=== PATIENT | female | born 1955 | race Caucasian/White ===

== ENCOUNTER 2024-10-02 07:11 | Outpatient (CLI) | payer MEDICARE, BC, SELFPAY ==
--- OUTSIDE RECORDS SUMMARY | 2024-10-02 08:22 | XMS_ITS | Clinical Summary ---
Author Organization [facility] Address [address] [place] [address] Care Team Providers Care Compensation Intern Name Role Phone Velia Blank MD Primary Care Prov ider Allergies Active Allergy Reactions Criticality Noted Date Comments Lisinopril Cough 12/27/2011 Nifedipine Edema 01/12/2016 Azithromycin Rash 06/12/2007 Medications blood-glucose meterIndications:T ype 2 diabetes mellitus without complication, without long-term current use of insulin (HC) Dispense meter, test strips, lancets covered by pt ins. E11.9 NIDDM type II - Test 3 times/day, Reason: New diabetes 1 Device 0 12/06/19 16 Active blood sugar diagnostic (ONETOUCH ULTRA BLUE TEST STRIP) stripIndications:T ype 2 diabetes mellitus without complication, without long-term current use of insulin (HC) As directed 2 times daily. Dispense item covered by pt ins. E11.9 NIDDM type II - Test 2 times/day. 200 Strip 3 05/17/19 21 Active nystatin (MYCOSTATIN) creamIndications:Y east cells and fungal elements present on diagnostic testing Apply topically to affected area(s) 2 times daily. Right axilla, right and left inframammary, abdomen 60 g 2 09/16/19 22 Active metFORMIN 500 mg tabletIndications: Type 2 diabetes mellitus without complication, without long-term current use of insulin (HC) TAKE 2 TABLETS BY MOUTH TWICE DAILY WITH MEALS 360 Tablet 08/18/19 25 Active polyethylene glycol-electrolyte 236-22.74-6.74 -5.86 gram suspensionIndicati ons:Encounter for screening colonoscopy Drink 2 liters (half the bottle) the day before colonoscopy and 2 liters (remaining prep) 6 hours prior to colonoscopy appointment. 4000 mL 09/04/19 25 Active hydroCHLOROthiazid e 25 mg tabletIndications: Hypertension, unspecified type Take 1 Tablet (25 mg) by mouth once daily. 90 Tablet 09/30/19 Active telmisartan 40 mg tabletIndications: Hypertension, unspecified type Take 0.5 Tablets (20 mg) by mouth once daily. 45 Tablet 09/30/19 25 Active atorvastatin 10 mg tabletIndications: Type 2 diabetes mellitus without complication, without long-term current use of insulin (HC),Hyperlipidemi a, unspecified hyperlipidemia type Take 1 Tablet (10 mg) by mouth once daily. 90 Tablet 09/30/19 25 Active blood sugar diagnostic stripIndications:T ype 2 diabetes mellitus without complication, without long-term current use of insulin (HC) Test As directed: 2 times daily. Dispense item covered by pt ins. E11.9 NIDDM type II - Test 2 times/day 200 Each 3 09/30/19 25 Active lancets (OneTouch Delica Plus Lancet) 33 gauge miscIndications:Ty pe 2 diabetes mellitus without complication, without long-term current use of insulin (HC) USE TO TEST BLOOD GLUCOSE LEVELS 2-3 TIMES DAILY DEPENDING ON BLOOD SUGAR. 300 Each 09/30/19 25 Active semaglutide (Ozempic) 2 mg/3 mL subcutaneous penIndications:Typ e 2 diabetes mellitus without complication, without long-term current use of insulin (HC) Inject 0.25 mg subcutaneous once weekly. After 4 weeks increase to 0.5 mg weekly 6 mL 09/30/19 25 Active blood sugar diagnostic stripIndications:T ype 2 diabetes mellitus without complication, without long-term current use of insulin (HC) Test As directed: 2 times daily. Dispense item covered by pt ins. E11.9 NIDDM type II - Test 2 times/day 200 Each 3 06/02/19 22 025 Discontin ued(Reord er (E-cancel not sent)) lancets (OneTouch Delica Plus Lancet) 33 gauge miscIndications:Ty pe 2 diabetes mellitus without complication, without long-term current use of insulin (HC) USE TO TEST BLOOD GLUCOSE LEVELS 2-3 TIMES DAILY DEPENDING ON BLOOD SUGAR. 300 Each 3 06/02/19 22 025 Discontin ued(Reord er (E-cancel not sent)) atorvastatin 10 mg tabletIndications: Type 2 diabetes mellitus without complication, without long-term current use of insulin (HC),Hyperlipidemi a, unspecified hyperlipidemia type TAKE ONE TABLET BY MOUTH ONE TIME DAILY 90 Tablet 08/25/19 25 025 Discontin ued(Reord er (E-cancel not sent)) hydroCHLOROthiazid e 25 mg tabletIndications: Hypertension, unspecified type TAKE ONE TABLET BY MOUTH ONE TIME DAILY 90 Tablet 08/25/19 25 025 Discontin ued(Reord er (E-cancel not sent)) telmisartan 40 mg tabletIndications: Hypertension, unspecified type Take 0.5 Tablets (20 mg) by mouth once daily. 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 Overview (09/09/2020): 05/17/20 Right shoulder, Junctional nevus with severe atypia: Excised 06/06/20 General surgery 05/17/20 back, Compound nevus with moderate atypia : Excised 06/06/20 General Surgery Atypical pigmented skin lesion 05/26/2020 Type 2 diabetes mellitus without complication Overview (02/09/2016): Diet controlled Started on Lipitor AHA risk was 3.8 % (without diabetes) Family history of malignant neoplasm of gastrointestinal tract 11/20/2013 Overview (04/21/2019): Colonoscopy 11/2013 normal repeat in 5 years Colonoscopy 04/2019 inflammatory polyp, repeat in 5 years Hypertension 10/23/2011 Knee pain 11/17/2009 Ingrowing nail 06/12/2007 Resolved Problems Problem Noted Date Diagnosed Date Resolved Date Glucose intolerance (pre-diabetes) 08/28/2013 02/09/2016 Encounters Date Type Department Care Team Description 10/02/2024 Travel 09/29/2024 7:00 AM CDT Office Visit [facility] [address] [place] [address] Velia Blank MD Medicare ANNUAL (subsequent) Visit (69 yo female); Preoperative Exam (DOS [facility]02[facility] 09/29/2024 Travel 09/10/2024 Orders Only [facility] Scanner 1 scan: (1-Ord) [facility], 09/10/2024 09/04/2024 8:40 AM CDT Ancillary Procedure [facility] [address] [place] [address] 09/04/2024 Travel 09/03/2024 Telephone [facility] [address] [place] [address] Nic Sexton MD Pre Procedure 08/22/2024 Refill [facility] [address] [place] [address] Velia Blank MD Refill Request (Atorvastatin, Hydrochlorothiazide, Telmisartan) 08/16/2024 Refill [facility] [address] [place] [address] Velia Blank MD Refill Request (Metformin) from Last 3 Months Immunizations Immunization Administration Dates Next Due Influenza Virus, Unspecified 02/06/2016 Influenza, High-dose Inactivated 02/22/2022 Influenza, High-dose Quadriv alent Inactivated 12/24/2022,02/22/2022,01/20/2021 Influenza, IIV3 (Age >=3 years) 01/30/20 14,01/19/2013,02/01/2012,2010,01/25/2010 Influenza, IIV4 05/01/2018 Influenza, IIV4 (=>6mos) MDV 01/27/2019,02/05/20 17 Influenza, Whole Virus 02/01/2017 Pneumococcal Conj 20-valent (Prevnar 20) 08/20/2023,06/28/2022 Pneumococcal Poly,23-Valent (Pneumovax) 05/25/2021 Td (Age >=7 Years) 06/26/2022 Tdap 06/26/2022,10/23/2011 Zoster (Shingrix-RZV, recombinant) 05/17/2020, Family History Medical History Relation Name Comments Cancer-colon Brother Diabetes Father Hyperlipidemia Father Hypertension Father Cancer Mother vulvar Deep vein thrombosis Mother Hypertension Mother Colon polyps Other genetic Good Health Sister Cancer-breast No Family History Relation Name Status Comments Brother Father Mother Other Sister Social History Tobacco Use Types Packs/Day Years Used Date Smoking Tobacco: Never Smokeless Tobacco: Never Tobacco Cessation:Counseling Given: Yes Alcohol Use Standard Drinks/Week Comments No 0 (1 standard drink = 0.6 oz pur e alcohol) PHQ-2 Answer Date Recorded PHQ-2 TOTAL SCORE 0 09/29/2024 Social Connections Answer Date Recorded Do you often feel lonely or isolated from those around you? 0 09/29/2024 Financial Resource Strain Answer Date R ecorded Difficulty of Paying Living Expenses 3 09/29/2024 Difficulty of Paying Living Expenses Not on file 09/29/2024 Food Insecurity Answer Date Recorded Do you worry your food will run out before you are able to buy more? 1 09/29/2024 Transportation Needs Answer Date Record ed Does lack of transportation keep you from medica l appointments? 1 09/29/2024 Does lack of transportation keep you from work, meetings or getting things that you need? 1 09/29/2024 Housing Stability Answer Date Recorded What is your housing situation today? 1 09/29/2024 Utilities Answer Date Recorded Do you have trouble paying f or utilities (for example, heat, electricity, water, phone)? 1 09/29/2024 Comments No Sex and Gender Information Value Date Recorded Sex Assigned at Not on file Legal Sex Female 6:23 AM [employer] TE[employer] Gender Identity Not on file Sexual Orientation Not on file Obstetrics History Last Filed Vital Signs Vital Sign Reading Time Taken Comments Blood Pressure 129/70 09/29/2024 7:07 AM CDT Pulse 63 09/29/2024 7:07 AM CDT Temperature 36.5 C (97.7 F) 09/29/2024 7:07 AM CDT Respiratory Rate 16 06/20/2020 7:34 AM CDT Oxygen Saturation 99% 09/29/2024 7:07 AM CDT Inhaled Oxygen Concentration - - Weight 91.3 kg (201 lb 3.2 oz) 09/29/2024 7:07 A M CDT Height 163.8 cm (5' 4.5) 09/29/2024 7:07 AM CDT Body Mass Index 34 09/29/2024 7:07 AM CDT Plan of Treatment Upcoming Encounters Date Type Department Care Team (Late st Contact Info) Description 11/24/2024 10:30 AM CDT Office Visit [facility] [address] [place], [place] [id number] Jen Headley MD [address] [place], [place] [address] 12/30/2024 7:00 AM CDT Office Visit [facility] [address] [place] [address] Velia Blank MD [address] [place] [address] Health Maintenance Due Date Last Done Comments RSV vaccine for adults or (1 - Risk 60-74 years 1-dose series) 2015 COVID-19 vaccine series ( season) 2023 07/04/2023, 01/08/2023, 09/21/2022, Additional history exists Influenza Vaccine (Season Ended) 2024 02/22/2022, 01/27/2019, 05/01/2018, Additional history exists Mammogram for age 45-75 09/04/2025 09/05/19, 08/20/2023, 06/26/2022, Additional history exists BMI (ht and wt on same day) for age 18+ 09/29/2025 09/29/2024, 08/20/2023, 06/26/2022, Additional history exists Depression screening for age 12+ 09/29/2025 09/29/2024, 08/20/2023, 06/26/2022, Additional history exists Medicare Wellness for age 65+ 09/30/2025 09/29/2024, 08/20/2023, 06/26/2022, Additional history exists Lipids for age 45-75 09/29/2029 09/29/2024, 08/20/2023, 06/26/2022, Additional history exists Colonoscopy through age 75 10/02/202910/02, 04/16/2019, 04/16/2019, Additional history exists Tetanus booster 06/26/2032 06/26/2022, 06/07, 10/23/2011 Hepatitis C screening for age 18-79 Completed 12/06/2015 Zoster (shingles) series for age 50+ Completed 05/17/2020, 05/15/2019 DEXA/DXA scan for age 65+ Completed 09/25/2021 Tdap Completed 06/26/2022, 10/23/2011 Pneumococcal series for age 50+ Completed 08/20/2023, 06/28/2022, 05/25/2021 Hepatitis B series for 19+ Aged Out N o longer eligible based on patient's age to complete this topic Procedures Procedure Name Priority Date/Time Associated Diagnosis Comments COLONOSCOPY SCREENING Routine 10/02/2024 6:50 AM CDT Encounter for screening colonoscopy URINE ALBUMIN TO CREATININE RATIO, RANDOM Routine 09/29/2024 8:23 AM CDT Type 2 diabetes mellitus without complication, without long-term current use of insulin (HC) BASIC METABOLIC PANEL Routine 09/29/2024 8:13 AM CDT Type 2 diabetes mellitus without complication, without long-term current use of insulin (HC) LIPID PANEL Routine 09/29/2024 8:13 AM CDT Type 2 diabetes mellitus without complication, without long-term current use of insulin (HC) HEMOGLOBIN A1C MONITORING (POCT) Routine 09/29/2024 8:11 AM CDT Type 2 diabetes mellitus without complication, without long-term current use of insulin (HC) SCAN-EYE EXAM 09/10/2024 12:00 AM CDT XR MAMMO VANE BILAT SCREEN Routine 09/04/2024 8:49 AM CDT Visit for screening mammogram XR DXA BONE DENSITY 2 SITES AXIAL Routine 09/25/2021 8:48 AM CDT Menopause ANTI HCV Routine 12/06/2015 8:41 AM CDT Need for hepatitis C screening test from Last 3 Months or Most Recently Relevant to Health Maintenance Results * URINE ALBUMIN TO CREATININE RATIO, RANDOM (09/29/2024 8:23 AM CDT) ALB RAND URINE <12.0 mg/L 09/29/2024 3:17 PM CDT [facility] CREATININE,URINE 1.12 g/L 09/30/19 3:17 PM CDT [facility] ALBUMIN TO CREATININE RATIO,RAND UR 09/29/2024 3:17 PM CDT [facility] Comment:Urine Albumin below measurement range, unable to calculate. Urine URINE SPECIMEN / Unknown Non-Blood / Unknown 09/29/2024 8:23 AM CDT 09/29/2024 8:23 AM CDT Narrative [facility] - 09/29/2024 3:17 PM CDT If Albumin to Creatinine Ratio is elevated, consider the following: Elevations seen with incipient nephropathy associated with diabetes mellitus or hypertension. Stress, exercise,hematuria, and urinary tract infection may also produce elevated results. If clinically indicated, confirm with 24 Hour Albumin to Creatinine Ratio. us Velia Blank MD URINE Fi nal Result [facility] [address] [place] [address], * (ABNORMAL) LIPID PANEL (09/29/2024 8:13 AM CDT) CHOLESTEROL, TOTAL 143 <200 mg/dL [facility] HDL CHOLESTEROL 56 > OR = 50 mg/dL [facility] TRIGLYCERIDES 174(H) <150 mg/dL [facility] LDL-CHOLESTEROL 62 mg/dL (calc) [facility] Comment: Reference range: <100 Desirable range <100 mg/dL for primary prevention; <70 mg/dL for patients with CHD or diabetic patients with > or = 2 CHD risk factors. LDL-C is now calculated using the Leo calculation, which is a validated novel method providing better accuracy than the Friedewald equation in the estimation of LDL-C. Nic SS et al. LEN. 2013;310(19): 0059-4946 (http://education.Sol Mar REI/faq/KBY875) CHOL/HDLC RATIO 2.6 <5.0 (calc) [facility] NON HDL CHOLESTEROL 87 <130 mg/dL (calc) [facility] Comment: For patients with diabetes plus 1 major ASCVD risk factor, treating to a non-HDL-C goal of <100 mg/dL (LDL-C of <70 mg/dL) is considered a therapeutic option. Blood BLOOD SPECIMEN / Unknown 09/29/2024 8:13 AM CDT 09/29/2024 8:14 AM CDT Velia Blank MD CHEMISTRY Fi nal Result [facility] [address] [place] [address], [place] [facility] [facility] [address] [place] [address] * (ABNORMAL) BASIC METABOLIC PANEL (09/29/2024 8:13 AM CDT) Pathologist [facility] GLUCOSE 189(H) 65 - 99 mg/dL [facility] Comment: Fasting reference interval For someone without known diabetes, a glucose value >125 mg/dL indicates that they may have diabetes and this should be confirmed with a follow-up test. UREA NITROGEN (BUN) 14 7 - 25 mg/dL [facility] CREATININE 0.70 0.50 - 1.05 mg/dL [facility] EGFR 94 > OR = 60 mL/min/1. 73m2 [facility] BUN/CREATININE RATIO SEE NOTE: 6 - 22 (calc) [facility] Comment: Not Reported: BUN and Creatinine are within reference range. SODIUM 139 135 - 146 mmol/L [facility] POTASSIUM 3.9 3.5 - 5.3 mmol/L [facility] CHLORIDE 98 98 - 110 mmol/L [facility] CARBON DIOXIDE 30 20 - 32 mmol/L [facility] ELECTROLYTE BALANCE 11 7 - 17 mmol/L (calc) [facility] CALCIUM 9.8 8.6 - 10.4 mg/dL [facility] Blood BLOOD SPECIMEN / Unknown 09/29/2024 8:13 AM CDT 09/29/2024 8:14 AM CDT Velia Blank MD CHEMISTRY Fi nal Result [facility] [place] [id number] [place] [address], [place] [employer] [address] * (ABNORMAL) POCT Hemoglobin A1C Monitoring (09/29/2024 8:11 AM CDT) POC HEMOGLOBIN A1C 10.4(H) <6.0 % OF TOTAL HGB [facility] Comment: Any point of care results exhibiting inconsistency with the patient's clinical status should be repeated using a different testing method. Blood BLOOD SPECIMEN / Unknown 09/29/2024 8:11 AM CDT 09/29/2024 8:12 AM CDT us Velia Blank MD CHEMISTRY Fi nal Result [facility] [address] [place] [address], [facility] [address] [place] [address] * SCAN-EYE EXAM (09/10/2024 12:00 AM CDT) Scanner OTHER Final Result * XR MAMMO VANE BILAT SCREEN (09/04/2024 8:49 AM CDT) Anatomical Region Laterality Modality BREASTS, Breast Left, Breast Right Bilateral Mammography Impressions 09/04/2024 3:53 PM CDT There is no radiographic evidence for malignancy. Recommend annual mammograms. MAMMOGRAM ASSESSMENT: ACR 1 Negative PATIENTS: You will also receive a letter with your examination results in an easy to read format. If you have questions about your results, please contact your referring provider. Narrative 09/04/2024 3:53 PM CDT For Patients: As a result of the Century Cures Act, medical imaging exams and procedure reports are released immediately into your electronic medical record. You may view this report before your referring provider. If you have questions, please contact your health care provider. XR MAMMO VANE BILAT SCREEN [[id number]] CLINICAL HISTORY: This is an asymptomatic 69 y.o. patient. INDICATION FOR EXAM: Mammogram Screening. TECHNIQUE: CC and MLO views were obtained. This study was evaluated with the assistance of Computer-Aided Detection. Breast Tomosynthesis was used in interpretation. COMPARISON FILM: Yes 08/20/23 [facility] 06/26/22 [facility] FINDINGS: The breasts are heterogeneously dense, which may obscure small masses. There are no dominant masses, suspicious micro calcifications or areas of architectural distortion. Velia Blank MD MAMMO Fi nal Result * XR DXA BONE DENSITY 2 SITES AXIAL [59340.1] (09/25/2021 8:48 AM CDT) Anatomical Region Laterality Modality Spine, HIPS, HIPL, HIPR Other Impressions 09/26/2021 3:40 PM CDT Normal bone density. RECOMMENDATIONS: The National Osteoporosis Foundation recommends pharmacologic treatment for patients with T-scores of -2.5 or less, patients with prior history of fragility fractures, or patients with 10-year probability of greater than 3% at hips or greater than 20% of suffering major osteoporotic fractures. Recommend continued optimization of calcium and vitamin D intake through dietary means and/or supplementation and regular exercise. Repeat scan recommended in 3-5 years. Merari Huerta PA-C [facility] 09/26/2021 Narrative 09/26/2021 3:40 PM CDT For Patients: Results are automatically released to your [facility] account once available, in compliance with federal regulations. This means that you may see your results before your provider has had a chance to review them. Please allow 2-3 business days for your provider to comment on the results. XR DXA Bone Mineral Density (BMD) EXAM LOCATION: [address] [address] PATIENT NAME: Janny Watson DATE OF : 1955 EXAM DATE: 09/25/2021 REQUESTING PROVIDER: Velia Blank MD GENDER AT : female HEIGHT: 5' 5.08 (05/25/2021) WEIGHT: 222 lb 3.2 oz (05/25/2021) MENOPAUSAL STATUS: Postmenopausal RACE/ETHNICITY: White RISK FACTORS: White Race CURRENT MEDICATION FOR BONE LOSS: NONE INDICATION: Menopause COMPARISON DATE(S): None DXA scans are compared to prior studies for a patient only when the two (or more) studies were performed on the same scanner. It is not possible to compare data generated on one scanner to data from another because there are not standards in DXA equipment. This applies even if the two scanners are made by the same manager ecommerce. PROCEDURE: Dual-energy x-ray absorptiometry performed with routine technique. Reporting is completed in the form of a T-score. The T-score represents the standard deviation from peak bone mass based on young healthy adult. A Z-score is used for diagnosis in premenopausal women, and for men under the age of 50. FINDINGS: RESULT LUMBAR SPINE L1 - L4(l3) BMD: 1.507 g/cm2 T-Score: + 2.6 Z-Score: + 3.1 Change from prior: None RESULTS FEMUR Left femoral neck BMD: 1.229 g/cm2 T-Score: + 1.4 Z-Score: + 2.1 Change from prior: None Right femoral neck BMD: 1.102 g/cm2 T-Score: + 0.5 Z-Score: + 1.2 Change from prior: None Left hip BMD: 1.304 g/cm2 T-Score: + 2.4 Z-Score: + 2.8 Change from prior: None Right hip BMD: 1.106 g/cm2 T-Score: + 0.8 Z-Score: + 1.2 Change from prior: None WHO criteria: Normal: T-score at or above -1 SD Osteopenia: T-score between -1.1 and -2.4 SD Osteoporosis: T-score at or below -2.5 SD us Velia Blank MD DEXA Fi nal Result * COLONOSCOPY (04/16/2019 10:16 AM [employer] TEACHER) 04/16/2019 10:1 6 AM [employer]ATION [employer]ER[employer] TEACHER Narrative Transcriptions Nic Sexton MD - 04/29/2019 1:23 PM CST Patient Name: Janny Watson Procedure Date: 04/16/2019 Gender: Female Date of : 1955 Admit Type: Outpatient Procedure: Colonoscopy Proceduralist: Nic Sexton MD , Fabienne Shaffer RN(Nurse) Indications/Pre-Op Diagnosis: Screening in patient at increased risk: Colorectal cancer in brother before age 60, Last colonoscopy: November 2010 Medications: Fentanyl 100 micrograms IV, Midazolam 3 mgIV, The level of sedation administered wasmoderate Procedure Description: The patient had risks, benefits and alternatives explained to andgave informed consent. The patient had a stable cardiopulmonary status and judged an adequate candidate for conscious sedation. The [id number] was passed through the anus and advanced tothe cecum, identified by appendiceal orifice and ileocecal valve. The colonoscopy was performed without difficulty. The patient toleratedthe procedure well. The quality of the bowel preparation was good. The ileocecal valve, appendiceal orifice, and rectum were photographed. Complications: No immediate complications. Estimated Blood Loss & Specimen: Estimated blood loss: none. Specimen collected - Yes and sent to Laboratory Findings: The perianal and digital rectal examinations were normal. Two sessile polyps were found in the sigmoid colon. The polyps were 2to 3 mm in size. These polyps were removed with a cold snare. Resectionand retrieval were complete. The exam was otherwise without abnormality. Impressions/Post-Op Diagnosis: - Two 2 to 3 mm polyps in the sigmoid colon, removed with a coldsnare. Resected and retrieved. - The examination was otherwise normal. Recommendation: - Patient has a contact number available for emergencies. The signsand symptoms of potential delayed complications were discussed with the patient. Return to normal activities tomorrow. Written discharge instructions were provided to the patient. - Resume previous diet. - Continue present medications. - Await pathology results. - Repeat colonoscopy in 5 years. Moderate Sedation: Moderate (conscious) sedation was administered by the endoscopy nurse and supervised by the endoscopist. The following parameters were monitored: oxygen saturation, heart rate, respiratory rate, blood pressure, adequacy of pulmonary ventilation and reponse to care. [facility] flow[facility]ets and nursing notes for moderate sedation details. Total physician intraservice time was 17 minutes. Nic Sexton MD 04/16/2019 11:36:55 AM This report has been signed electronically. Note Initiated On: 04/16/2019 10:16 AM Procedure Code(s): --- Professional --- 79821, Colonoscopy, flexible; with removalof tumor(s), polyp(s), or other lesion(s) bysnare technique Diagnosis Code(s): --- Professional --- Z80.0, Family history of malignant neoplasmof digestive organs D12.5, Benign neoplasm of sigmoid colon CPT copyright 2018 [employer]. All rights reserved. The codes documented in this report are preliminary and upon neuro intensivist physician reviewmay be revised to meet current compliance requirements. Scope In: 11:15:27 AM Scope Withdrawal Time 0 hours 10 minutes 12 seconds Scope Out: 11:30:00 AM us Nic Sexton MD PROCEDURE ORD Edited Re sult - Final * ANTI HCV [03591.2] (12/06/2015 8:41 AM CDT) HEPATITIS C ANTIBODY Non-Reacti ve Non-Reacti ve 12/06/2015 3:03 PM CDT [facility] Blood BLOOD SPECIMEN / Unknown Venipuncture / Unknown 12/06/2015 8:41 AM CDT 12/06/2015 8:41 AM CDT Narrative [facility] - 12/06/2015 3:03 PM CDT Antibodies to HCV not detected; does not exclude the possibility of exposure to HCV. Velia Blank MD SEND OUTS Fi nal Result [facility] [address] [place] [address], [place] from Last 3 Months or Most Recently Relevant to Health Maintenance Insurance [employer] [place] ONLY Care Teams Compensation Intern Relationship Specialty Start Date End Date Velia Blank MD [address] [place] [address] PCP - General 09/13/05
--- NOTE | 2024-10-02 08:25 | P.ANES_ITS ---
Anesthesia Charges Start Date/Time Anesthesia Start Date: 10/02/24 Anesthesia Start Time: 08:05 Stop Date/Time Anesthesia Stop Date: 10/02/24 Anesthesia Stop Time: 08:23 Coding CPT Codes CPT Codes: ANES LWR INTST SCR COLSC - 84154 ([id number]) P2 - PATIENT W/MILD SYST DISEASE, QK - DATA SOLUTIONS ARCHITECT 2-4 CNCRNT ANES PROC, QX - MALT SPECIFICATIONS CONTROL ASSISTANT SVC W/ MD MED DIRECTION
--- NOTE | 2024-10-02 08:25 | W.ANESCHARGE ---
Anesthesia Charges Start Date/Time Anesthesia Start Date: 10/02/24 Anesthesia Start Time: 08:05 Stop Date/Time Anesthesia Stop Date: 10/02/24 Anesthesia Stop Time: 08:23 Coding CPT Codes CPT Codes: ANES LWR INTST SCR COLSC - 20910 ([id number]) P2 - PATIENT W/MILD SYST DISEASE, QK - CITIZENSHIP INSTRUCTOR 2-4 CNCRNT ANES PROC, QX - MANAGER HYDRAULIC SVC W/ MD MED DIRECTION
--- NOTE | 2024-10-02 09:14 | P.ANES_ITS ---
Anesthesia Charges Start Date/Time Anesthesia Start Date: 10/02/24 Anesthesia Start Time: 08:05 Stop Date/Time Anesthesia Stop Date: 10/02/24 Anesthesia Stop Time: 08:23 Coding CPT Codes CPT Codes: ANES LWR INTST SCR COLSC - 33103 ([id number]) P2 - PATIENT W/MILD SYST DISEASE, QK - PLACEMENT DIRECTOR 2-4 CNCRNT ANES PROC, QX - ROLL PLUGGER MACHINE OPERATOR SVC W/ MD MED DIRECTION
--- NOTE | 2024-10-02 09:14 | W.ANESCHARGE ---
Anesthesia Charges Start Date/Time Anesthesia Start Date: 10/02/24 Anesthesia Start Time: 08:05 Stop Date/Time Anesthesia Stop Date: 10/02/24 Anesthesia Stop Time: 08:23 Coding CPT Codes CPT Codes: ANES LWR INTST SCR COLSC - 96098 ([id number]) P2 - PATIENT W/MILD SYST DISEASE, QK - BAR SUPERVISOR 2-4 CNCRNT ANES PROC, QX - CERTIFIED GENETIC COUNSELOR SVC W/ MD MED DIRECTION
--- OUTSIDE RECORDS SUMMARY | 2024-10-03 00:20 | XMS_ITS | Clinical Summary ---
Author Organization [facility] Address [address] [place] [id number] Care Team Providers Care Social Security Benefits Interviewer Name Role Phone Velia Blank MD Primary [...] Date Type Department Care Team Description 10/02/2024 7:15 AM CDT Office Visit [facility] [address] [place] [address] Nic Sexton MD Arrived 10/02/2024 Orders Only [facility] Scanner 1 scan: (1-Ord) INCOMING RECORDS-COLONOSCOPY, [facility], 10/02/2024 10/02/2024 Orders Only [facility] Scanner 1 scan: (1-Ord) INCOMING RECORDS-COLONOSCOPY, [facility], 10/02/2024 10/02/2024 Travel 09/29/2024 7:00 AM CDT Office Visit [facility] [address] [place] [address] Velia Blank MD Medicare ANNUAL (subsequent) Visit (69 yo female); Preoperative Exam (DOS 10/02/24 /Preop Colonoscopy/Dr. Sexton- [facility] ) 09/29/2024 Travel 09/10/2024 Orders Only [facility] Scanner 1 scan: (1-Ord) [facility], 09/10/2024 09/04/2024 8:40 AM CDT Ancillary Procedure [facility] [address] [place] [address] 09/04/2024 Travel 09/03/2024 Telephone [facility] [address] [place] [address] Nic Sexton MD Pre Procedure 08/22/2024 Refill [facility] [address] [place] [address] Velia Blank MD Refill Request (Atorvastatin, Hydrochlorothiazide, Telmisartan) 08/16/2024 Refill [facility] [address] [place] [address] Velia Blank MD Refill Request (Metformin) from Last 3 Months Immunizations Immunization Administration Dates Next Due Influenza Virus, Unspecified 02/06/2016 Influenza, High-dose Inactivated 02/22/2022 Influenza, High-dose Quadriv alent Inactivated 12/24/2022,02/22/2022,01/20/2021 Influenza, IIV3 (Age >=3 years) 01/30/20 14,01/19/2013,02/01/2012,2010,01/25/2010 Influenza, IIV4 05/01/2018 Influenza, IIV4 (=>6mos) MDV 01/27/2019,02/05/20 Influenza, Whole Virus 02/01/2017 Pneumococcal Conj 20-valent [...] on file 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 Gender Identity Not on file Sexual Orientation [...] Description 11/24/2024 10:30 AM CDT Office Visit [facility] [address] [place], [place] [id number] Jen Headley MD [address], [place] [id number] 12/30/2024 7:00 AM CDT Office Visit [facility] [address] [place] [address] Velia Blank MD [address] [place] [address] Health Maintenance Due Date Last Done Comments [...] history exists Colonoscopy through age 75 10/02/202910/02, 10/02/2024, 10/02/2024, Additional history exists Tetanus booster 06/26/2032 06/26/2022, [...] 6:50 AM CDT Encounter for screening colonoscopy SCAN-COLONOSCOPY 10/02/2024 12:0 0 AM CDT SCAN-COLONOSCOPY 10/02/2024 12:0 0 AM CDT URINE ALBUMIN TO CREATININE RATIO, RANDOM Routine [...] Recently Relevant to Health Maintenance Results * SCAN-COLONOSCOPY (10/02/2024 12:00 AM CDT) us Scanner OTHER Final Result * SCAN-COLONOSCOPY (10/02/2024 12:00 AM CDT) us Scanner OTHER Final Result * URINE ALBUMIN TO CREATININE RATIO, RANDOM (09/29/2024 8:23 AM CDT) ALB RAND URINE <12.0 mg/L 09/29/2024 3:17 PM CDT [facility] CREATININE,URINE 1.12 g/L 09/30/19 3:17 PM CDT [facility] ALBUMIN TO CREATININE RATIO,RAND UR 09/29/2024 3:17 PM CDT [facility] Comment:Urine Albumin below measurement range, unable to calculate. Urine URINE SPECIMEN / Unknown Non-Blood / Unknown 09/29/2024 8:23 AM CDT 09/29/2024 8:[address] [facility] - 09/29/2024 3:17 PM CDT If Albumin to Creatinine Ratio is elevated, consider the following: Elevations seen with incipient nephropathy associated with diabetes mellitus or hypertension. Stress, exercise,hematuria, and urinary tract infection may also produce elevated results. If clinically indicated, confirm with 24 Hour Albumin to Creatinine Ratio. us Velia Blank MD URINE Fi nal Result [facility] [address] [place] [address], * (ABNORMAL) LIPID PANEL (09/29/2024 8:13 AM CDT) [facility] CHOLESTEROL, TOTAL 143 <200 mg/dL [facility] HDL CHOLESTEROL 56 > OR = 50 mg/dL [facility] TRIGLYCERIDES 174(H) <150 mg/dL [facility] LDL-CHOLESTEROL 62 mg/dL (calc) [facility] Comment: Reference range: <100 Desirable range <100 mg/dL for primary prevention; <70 mg/dL for patients with CHD or diabetic patients with > or = 2 CHD risk factors. LDL-C is now calculated using the Nic-Migdalia calculation, which is a validated novel method providing better accuracy than the Friedewald equation in the estimation of LDL-C. Nic MENDIOLA et al. LEN. 2013;310(19): 0404-0378 (http://education.spotdock.MilePoint/faq/EQT678) CHOL/HDLC RATIO 2.6 <5.0 (calc) [facility] NON HDL CHOLESTEROL 87 <130 mg/dL (calc) [facility] Comment: For patients with diabetes plus 1 major ASCVD risk factor, treating to a non-HDL-C goal of <100 mg/dL (LDL-C of <70 mg/dL) is considered a therapeutic option. Blood BLOOD SPECIMEN / Unknown 09/29/2024 8:13 AM CDT 09/29/2024 8:14 AM CDT Velia Blank MD CHEMISTRY Fi nal Result [email or web address] [facility] [address] [place] [address], [facility] [address] [place] [address] * (ABNORMAL) BASIC METABOLIC PANEL (09/29/2024 8:13 AM CDT) Pathologist [facility] GLUCOSE 189(H) 65 - 99 mg/dL [facility] Comment: Fasting reference interval For someone without known diabetes, a glucose value >125 mg/dL indicates that they may have diabetes and this should be confirmed with a follow-up test. UREA NITROGEN (BUN) 14 7 - 25 mg/dL [facility] CREATININE 0.70 0.50 - 1.05 mg/dL [facility] [...] Velia Blank MD CHEMISTRY Fi nal Result [facility] [address] [place] [address], [place] [phone] [facility] [address] [place] [address] * (ABNORMAL) POCT Hemoglobin A1C Monitoring (09/29/2024 8:11 AM CDT) POC HEMOGLOBIN A1C 10.4(H) <6.0 % OF TOTAL HGB [facility] Comment: Any point of care results exhibiting inconsistency with the patient's clinical status should be repeated using a different testing method. Blood BLOOD SPECIMEN / Unknown 09/29/2024 8:11 AM CDT 09/29/2024 8:12 AM CDT Velia Blank MD CHEMISTRY Fi nal Result Performing Organization Address City/[facility] Co de Phone Number [facility] [address] [place] [address], [place] [phone] [facility] [address] [place] [address] * SCAN-EYE EXAM (09/10/2024 12:00 AM CDT) us Scanner OTHER Final Result * XR MAMMO [...] care provider. XR MAMMO VANE BILAT SCREEN [[id number]] CLINICAL HISTORY: This is an asymptomatic 69 y.o. patient. INDICATION FOR EXAM: Mammogram Screening. TECHNIQUE: CC and MLO views were obtained. This study was evaluated with the assistance of Computer-Aided Detection. Breast Tomosynthesis was used in interpretation. COMPARISON FILM: Yes 08/20/23 [facility] 06/26/22 [facility] FINDINGS: The breasts are heterogeneously dense, which may obscure small masses. There are no dominant masses, suspicious micro calcifications or areas of architectural distortion. us Velia Blank MD MAMMO Fi nal Result * XR DXA BONE DENSITY 2 SITES AXIAL [12456.1] (09/25/2021 8:48 AM CDT) Anatomical Region Laterality [...] recommended in 3-5 years. Merari Huerta PA-C [facility] 09/26/2021 Narrative 09/26/2021 3:40 PM CDT For Patients: Results are automatically released to your [employer] [facility] ([employer]) account once available, in compliance with federal regulations. This means that you may see your results before your provider has had a chance to review them. Please allow 2-3 business days for your provider to comment on the results. XR DXA Bone Mineral Density (BMD) EXAM LOCATION: [address] [address] PATIENT NAME: Janny Watson DATE OF : [...] two scanners are made by the same property controller. PROCEDURE: Dual-energy x-ray absorptiometry performed with routine [...] Blank MD DEXA Fi nal Result * ANTI HCV [92201.2] (12/06/2015 8:41 AM CDT) HEPATITIS C ANTIBODY Non-Reacti ve Non-Reacti ve 12/06/2015 3:03 PM CDT [facility] Blood BLOOD SPECIMEN / Unknown Venipuncture / Unknown 12/06/2015 8:41 AM CDT 12/06/2015 8:[address] [facility] - 12/06/2015 3:03 PM CDT Antibodies to HCV not detected; does not exclude the possibility of exposure to HCV. us Velia Blank MD SEND OUTS Fi nal Result [facility] [address] [place] [address], from Last 3 Months or Most Recently Relevant to Health Maintenance Insurance [employer] [place] BLUE MR PB ONLY Care Teams Social Security Benefits Interviewer Relationship Specialty Start Date End Date Velia Blank MD [address] [place] [address] PCP - General 09/13/05
== END 2024-10-02 07:12 | disposition home or self-care (01) ==
LOC: OP CLINIC 07:11
PROVIDERS: PCP Family Medicine; Visit Provider Internal Medicine Gastroenterology
DX: Z12.11 Encounter for screening for malignant neoplasm of colon (principal); Z80.0 Family history of malignant neoplasm of digestive organs
CPT/HCPCS: 00812; 45378; J2704